=== PATIENT | female | born 1965 | race Caucasian/White ===

== ENCOUNTER 2017-03-19 14:03 | Observation (INO) | payer OTHER ==
[2017-03-19] MEDS ORDERED: NITROGLYCERIN OINT 1 INCH/GM PACKET TOPICAL STA (14:46)
[2017-03-19] MEDS ORDERED: ASPIRIN 81 MG CHEW PO STA (14:46)
--- NOTE | 2017-03-19 14:48 | ED ---
General Adult HPI - General Chief complaint: Chest Pain Stated complaint: Chest Pain Time Seen by Provider: 03/19/17 14:20 Source: patient, RN notes reviewed Mode of arrival: wheelchair Limitations: no limitations - History of Present Illness Initial comments: This is a 51-year-old female with past medical history significant for diabetes hypertension high cholesterol. Patient states she's been expressing chest pain the last couple of days per patient states the initial pain is sharper pain which lasts a few minutes and then she has a steady soreness in the middle of her chest per patient states today she was hanging some clothes when she started having some shortness of breath chest pain and broke out into a heavy sweat. Patient states she has a family history of heart disease and she came to the hospital immediately. Patient states she still expressing slight chest pressure currently. Patient denies any nausea. Patient denies abdominal pain patient denies nausea vomiting diarrhea. Patient denies any recent fever chills or cough per patient denies lightheadedness dizziness or nursing episode. - Related Data Home Medications Medication Instructions Recorded Confirmed Atorvastatin [Lipitor] 10 mg PO HS 03/19/17 03/19/17 Cholecalciferol [Vitamin D3] 5,000 unit PO DAILY 03/19/17 03/19/17 Levothyroxine Sodium [Synthroid] 150 mcg PO DAILY 03/19/17 03/19/17 Lisinopril [Prinivil] 10 mg PO DAILY 03/19/17 03/19/17 Multivitamins, Thera [Multivitamin 1 tab PO DAILY 03/19/17 03/19/17 (formulary)] Vitamin E (Dl,Tocopheryl Acet) 400 unit PO DAILY 03/19/17 03/19/17 [Vitamin E] metFORMIN HCL [Glucophage] 500 mg PO DAILY 03/19/17 03/19/17 Allergies Allergy/AdvReac Type Severity Reaction Status Date / Time amoxicillin Allergy Rash/Hives Verified 03/19/17 15:03 Review of Systems ROS Statement: Those systems with pertinent positive or pertinent negative responses have been documented in the HPI. ROS Other: All systems not noted in ROS Statement are negative. Past Medical History Past Medical History: Asthma, COPD, Diabetes Mellitus, Hypertension, Thyroid Disorder Additional Past Medical History / Comment(s): collapsed lung History of Any Multi-Drug Resistant Organisms: None Reported Past Surgical History: Appendectomy, Hysterectomy Past Psychological History: No Psychological Hx Reported Smoking Status: Former smoker Past Alcohol Use History: None Reported Past Drug Use History: None Reported General Exam - General Exam Comments Initial Comments: GENERAL: Patient is well-developed and well-nourished. Patient is nontoxic and well- hydrated and is in mild distress. ENT: Neck is soft and supple. No significant lymphadenopathy is noted. Oropharynx is clear. Moist mucous membranes. Neck has full range of motion without eliciting any pain. EYES: The sclera were anicteric and conjunctiva were pink and moist. Extraocular movements were intact and pupils were equal round and reactive to light. Eyelids were unremarkable. PULMONARY: Unlabored respirations. Good breath sounds bilaterally. No audible rales rhonchi or wheezing was noted. CARDIOVASCULAR: There is a regular rate and rhythm without any murmurs gallops or rubs. ABDOMEN: Soft and nontender with normal bowel sounds. No palpable organomegaly was noted. There is no palpable pulsatile mass. SKIN: Skin is clear with no lesions or rashes and otherwise unremarkable. NEUROLOGIC: Patient is alert and oriented x3. Cranial nerves II through XII are grossly intact. Motor and sensory are also intact. Normal speech, volume and content. Symmetrical smile. MUSCULOSKELETAL: Normal extremities with adequate strength and full range of motion. LYMPHATICS: No significant lymphadenopathy is noted PSYCHIATRIC: Normal psychiatric evaluation. Normal interpersonal interactions appears functionally intact in deals appropriately with others. No signs of depression. No signs of anxiety. Limitations: no limitations Course Vital Signs 03/19/17 03/19/17 03/19/17 14:10 15:06 16:03 Temperature 97.3 F L 98.3 F 98 F Pulse Rate 95 92 80 Respiratory 18 18 16 Rate Blood Pressure 135/79 165/90 136/64 O2 Sat by Pulse 95 97 99 Oximetry Medical Decision Making - Medical Decision Making EKG shows normal sinus rhythm at 90 bpm MO interval 140 QRS is 94 Q-T intervals 388 QTC is 474 per patient's EKG shows no ST segment elevation or depression or T wave abnormalities are noted. Chest x-ray shows no acute abnormality. Patient had significant risk factors and her symptoms were significant enough that I thought the patient was having unstable angina Cipro the patient on heparin. I spoke with Dr. James agreed to admit the patient admitted the patient and wrote admitting orders and consult cardiology I continued heparin aspirin and nitroglycerin in the hospital. - Lab Data Result diagrams: 03/19/17 15:00 03/19/17 15:00 Lab Results 03/19/17 03/19/17 03/19/17 Range/Units 15:00 15:00 15:00 WBC 11.8 H (3.8-10.6) k/uL RBC 4.70 (3.80-5.40) m/uL Hgb 13.2 (11.4-16.0) gm/dL Hct 40.4 (34.0-46.0) % MCV 86.1 (80.0-100.0) fL MCH 28.0 (25.0-35.0) pg MCHC 32.5 (31.0-37.0) g/dL RDW 14.3 (11.5-15.5) % Plt Count 301 (150-450) k/uL Neutrophils % 70 % Lymphocytes % 24 % Monocytes % 2 % Eosinophils % 1 % Basophils % 1 % Neutrophils # 8.2 H (1.3-7.7) k/uL Lymphocytes # 2.8 (1.0-4.8) k/uL Monocytes # 0.3 (0-1.0) k/uL Eosinophils # 0.1 (0-0.7) k/uL Basophils # 0.1 (0-0.2) k/uL PT (9.0-12.0) sec INR (<1.1) APTT (22.0-30.0) sec Sodium 142 (137-145) mmol/L Potassium 4.1 (3.5-5.1) mmol/L Chloride 104 (98-107) mmol/L Carbon Dioxide 29 (22-30) mmol/L Anion Gap 9 mmol/L BUN 12 (7-17) mg/dL Creatinine 0.59 (0.52-1.04) mg/dL Est GFR (MDRD) Af Amer >60 (>60 ml/min/1.73 sqM) Est GFR (MDRD) Non-Af >60 (>60 ml/min/1.73 sqM) Glucose 208 H (74-99) mg/dL Calcium 9.7 (8.4-10.2) mg/dL Magnesium 1.8 (1.6-2.3) mg/dL Total Bilirubin 0.6 (0.2-1.3) mg/dL AST 88 H (14-36) U/L ALT 78 H (9-52) U/L Alkaline Phosphatase 125 (38-126) U/L Total Creatine Kinase 47 (30-135) U/L CK-MB (CK-2) 0.4 (0.0-2.4) ng/mL CK-MB (CK-2) Rel Index 0.9 Troponin I <0.012 (0.000-0.034) ng/mL Total Protein 7.0 (6.3-8.2) g/dL Albumin 4.0 (3.5-5.0) g/dL 03/19/17 Range/Units 15:00 WBC (3.8-10.6) k/uL RBC (3.80-5.40) m/uL Hgb (11.4-16.0) gm/dL Hct (34.0-46.0) % MCV (80.0-100.0) fL MCH (25.0-35.0) pg MCHC (31.0-37.0) g/dL RDW (11.5-15.5) % Plt Count (150-450) k/uL Neutrophils % % Lymphocytes % % Monocytes % % Eosinophils % % Basophils % % Neutrophils # (1.3-7.7) k/uL Lymphocytes # (1.0-4.8) k/uL Monocytes # (0-1.0) k/uL Eosinophils # (0-0.7) k/uL Basophils # (0-0.2) k/uL PT 10.3 (9.0-12.0) sec INR 1.0 (<1.1) APTT 23.5 (22.0-30.0) sec Sodium (137-145) mmol/L Potassium (3.5-5.1) mmol/L Chloride (98-107) mmol/L Carbon Dioxide (22-30) mmol/L Anion Gap mmol/L BUN (7-17) mg/dL Creatinine (0.52-1.04) mg/dL Est GFR (MDRD) Af Amer (>60 ml/min/1.73 sqM) Est GFR (MDRD) Non-Af (>60 ml/min/1.73 sqM) Glucose (74-99) mg/dL Calcium (8.4-10.2) mg/dL Magnesium (1.6-2.3) mg/dL Total Bilirubin (0.2-1.3) mg/dL AST (14-36) U/L ALT (9-52) U/L Alkaline Phosphatase (38-126) U/L Total Creatine Kinase (30-135) U/L CK-MB (CK-2) (0.0-2.4) ng/mL CK-MB (CK-2) Rel Index Troponin I (0.000-0.034) ng/mL Total Protein (6.3-8.2) g/dL Albumin (3.5-5.0) g/dL Critical Care Time Critical Care Time: Yes Total Critical Care Time: 35 Disposition Clinical Impression: Unstable angina pectoris Disposition: ADMITTED IP TO THIS HOSP Referrals: lOiverio Stout MD [Primary Care Provider] - 1-2 days Time of Disposition: 16:25
[2017-03-19 15:27] LABS: Basophils # (A) 0.1 k/uL (0-0.2); Basophils % (A) 1 %; CH 27.8; CHCM 32.4; Eosinophils # (A) 0.1 k/uL (0-0.7); Eosinophils % (A) 1 %; HCT 40.4 % (34.0-46.0); HDW 2.61; HGB 13.2 gm/dL (11.4-16.0); Luc # (Auto) 0.24; Luc % (Auto) 2; Lymphocytes # (A) 2.8 k/uL (1.0-4.8); Lymphocytes % (A) 24 %; MCHC 32.5 g/dL (31.0-37.0); MCV 86.1 fL (80.0-100.0); Mean Platelet Volume 7.1; Monocytes # (A) 0.3 k/uL (0-1.0); Monocytes % (A) 2 %; Neutrophils # (A) 8.2 k/uL (1.3-7.7); Neutrophils % (A) 70 %; RDW 14.3 % (11.5-15.5); WBC 11.8 k/uL (3.8-10.6); WBC (Perox) 12.56
--- NOTE | 2017-03-19 15:35 | XR ---
EXAMINATION TYPE: XR chest 2V DATE OF EXAM: 03/19/2017 COMPARISON: NONE HISTORY: Shortness of breath TECHNIQUE: Frontal and lateral views of the chest are obtained. FINDINGS: Scattered senescent parenchymal changes noted. Hyperinflation compatible with COPD. No evidence for infiltrate. No evidence for atelectasis. Heart size is stable. Mediastinal structures are stable and grossly unremarkable. No evidence for hilar prominence. Degenerative changes dorsal spine. IMPRESSION: 1. No evidence for acute pulmonary disease.
[2017-03-19 15:38] LABS: Partial Thromboplastin Time 23.5 sec (22.0-30.0); Prothrombin Time 10.3 sec (9.0-12.0)
[2017-03-19 15:42] LABS: ALT 78 U/L (9-52); AST 88 U/L (14-36); Alkaline Phosphatase 125 U/L (38-126); Anion Gap 9 mmol/L; Blood Urea Nitrogen 12 mg/dL (7-17); Calcium 9.7 mg/dL (8.4-10.2); Carbon Dioxide 29 mmol/L (22-30); Chloride 104 mmol/L (98-107); Glucose 208 mg/dL (74-99); Magnesium 1.8 mg/dL (1.6-2.3); Non-African American GFR(MDRD) >60 (>60 ml/min/1.73 sqM); Potassium 4.1 mmol/L (3.5-5.1); Sodium 142 mmol/L (137-145); Total Bilirubin 0.6 mg/dL (0.2-1.3)
[2017-03-19 15:53] LABS: Creatine Kinase 47 U/L (30-135)
[2017-03-19 16:06] LABS: Creatine Kinase MB 0.4 ng/mL (0.0-2.4); Troponin I <0.012 ng/mL (0.000-0.034)
[2017-03-19] MEDS ORDERED: HEPARIN SODIUM,PORCINE 5,000 UNIT/ML 1 ML VIAL IV ONE (16:23)
[2017-03-19] MEDS ORDERED: NITROGLYCERIN SL TABS 0.4 MG TAB SUBLINGUAL PRN (16:27)
[2017-03-19] MEDS ORDERED: HEPARIN SODIUM,PORCINE/D5W PMX 25,000 UNIT in DEXTROSE/WATER 1 500ML.BAG IV SCH (16:30)
[2017-03-19 17:56] LABS: Glucose,Whole Blood 192 mg/dL (75-99)
[2017-03-19] MEDS ORDERED: ACETAMINOPHEN TAB 325 MG TAB PO PRN (18:02)
[2017-03-19] MEDS: INSULIN LISPRO (humaLOG) 300 UNIT/3 ML VIAL SQ SCH ×2 (18:15→20:48)
[2017-03-19] MEDS: ATORVASTATIN 10 MG TAB PO SCH (20:25)
[2017-03-19 20:56] LABS: Glucose,Whole Blood 230 mg/dL (75-99)
[2017-03-19 22:26] LABS: Creatine Kinase 33 U/L (30-135)
[2017-03-19 22:40] LABS: Creatine Kinase MB 0.4 ng/mL (0.0-2.4); Troponin I <0.012 ng/mL (0.000-0.034)
[2017-03-19] MEDS: HEPARIN SODIUM,PORCINE 5,000 UNIT/ML 1 ML VIAL IV PRN (22:56)
[2017-03-19] MEDS: NITROGLYCERIN OINT 1 INCH/GM PACKET TOPICAL SCH (23:08)
[2017-03-20 04:51] LABS: Cholesterol 178 mg/dL (<200); HDL Cholesterol 29 mg/dL (40-60); Triglycerides 368 mg/dL (<150)
[2017-03-20] MEDS: NITROGLYCERIN OINT 1 INCH/GM PACKET TOPICAL SCH ×3 (04:56→17:50)
[2017-03-20 04:57] LABS: Creatine Kinase 30 U/L (30-135)
[2017-03-20 05:10] LABS: Creatine Kinase MB 0.4 ng/mL (0.0-2.4); Troponin I <0.012 ng/mL (0.000-0.034)
[2017-03-20] MEDS: HEPARIN SODIUM,PORCINE 5,000 UNIT/ML 1 ML VIAL IV PRN (05:14)
[2017-03-20] MEDS: LEVOTHYROXINE 75 MCG TAB PO SCH (06:13)
[2017-03-20 06:53] LABS: Glucose,Whole Blood 231 mg/dL (75-99)
[2017-03-20] MEDS ORDERED: metFORMIN 500 MG TAB PO SCH (07:30)
--- NOTE | 2017-03-20 07:50 | P.PN ---
Progress Note - Text The patient is a 51-year-old female who presented yesterday to the emergency room with chest pain. Please refer to history and physical that was dictated yesterday. Patient states overall the pain has eased up but this morning she still having one area of discomfort in the right upper chest costochondral area. She denies any shortness of breath or nausea and vomiting at this time. Patient does have risk factors with the underlying obesity, diabetes, hypertension and hyperlipidemia. She also has a positive family history. Vital signs reveal temperature 97.7 with a pulse of 71 and respirations 16. Blood pressure is 128/79 and she is 95% saturated on room air. Head and neck exam unremarkable. Lung and heart exam is clear. No rubs heard. No murmurs. Some mild discomfort with pressure in the right upper chest. Abdomen soft and nontender. No unusual edema. She is alert and oriented without focal weakness. Laboratory results: Troponins have been less than 0.012. CKs have remained normal. Cholesterol values revealed a total cholesterol 178 and an LDL close to 79. Triglycerides are elevated at 368 and blood sugars also running in the 200 range. Impressions and plan: This is a 51-year-old female with multiple risk factors presented with chest pain. She is presently on heparin. Await further recommendations from cardiology on any further testing/ evaluation. Discussed with patient at bedside.
--- NOTE | 2017-03-20 07:55 | HP ---
DATE OF ADMISSION: Mrs. Rust is a 51-year-old female who chief complaint in the emergency room was chest pain. HISTORY OF PRESENT ILLNESS: Apparently has had some chest discomfort on-and-off for the past 2 to 3 days, sharp in nature to some extent and then leaving more of just a generalized ache, not particularly related to coughing or movement. No specific injury. She did apparently have a recent URI for which she was on the antibiotics and has had some cough with sinus drainage. No previous history of coronary disease. Other past medical history is positive for diabetes, hypertension, and hypothyroidism. There is a history of previous smoking. Previous surgical history includes an appendectomy and hysterectomy. Home medications include: Lipitor for cholesterol 10 mg at bedtime, vitamin D3 5000 units daily, levothyroxine 150 mcg, lisinopril 10 mg, Theragran multiple vitamin daily, vitamin E 400 units and metformin 500 mg daily. Apparently, she is ALLERGIC TO PENICILLIN with hives. REVIEW OF SYSTEMS: As mentioned in the history of present illness. No fever, chills, no visual disturbances, no unusual phlegm production or pleurisy. No nausea, vomiting, no urinary or bowel symptomatology or leg edema. FAMILY HISTORY: Apparently her mother had heart disease at the age of 60 and has had bypass surgery recently and there is other stroke symptomatology on her mother's side. SOCIAL HISTORY: She is a former smoker, quit 2 to 3 years ago. No history of any excessive alcohol intake. On physical examination, she is pleasant female in no acute distress. VITAL SIGNS: Temperature 97.5, pulse 85, respirations 18, blood pressure 135/79 and she is 94% saturated on room air. HEENT: Unremarkable. NECK: Supple without adenopathy or bruits or thyromegaly. Breasts and pelvic exam deferred. Chest: Mild anterior chest wall tenderness right costochondrol. Lungs were clear to auscultation. HEART: Tones were regular without murmurs. ABDOMEN: Obese but soft and nontender. EXTREMITIES: No edema. NEUROLOGICAL: She is alert and oriented. Cranial nerves intact. No focal weakness noted. Laboratory testing revealed a white count 11.8, hemoglobin 13.2 and a platelet count of 301. INR is 1.0. Basic metabolic panel was unremarkable, although blood sugar was 208 on presentation. She also had some mild elevation of the AST and ALT of 88 and 78, respectively, with a normal bilirubin. Normal troponin less than 0.012 and albumin normal at 4. EKG revealed a regular sinus rhythm without ischemic changes. OVERALL IMPRESSION: This is 51-year-old female who does have risk factors that includes previous smoking, diabetes, obesity. Family history presents with chest pain, somewhat atypical associated with some symptoms and consistency of costochondritis, although at this point plans are to place. Patient under observation and ask Cardiology to see in the morning. Repeat troponin levels keep n.p.o. in the morning for further testing as discussed with the nursing staff and patient at bedside. I am covering for Dr. Stout who is out of town. [facility]
[2017-03-20] MEDS: INSULIN LISPRO (humaLOG) 300 UNIT/3 ML VIAL SQ SCH ×4 (08:21→20:09)
--- NOTE | 2017-03-20 08:37 | CONS ---
DATE OF CONSULTATION: CHIEF COMPLAINT: Chest pain. Angelina is a 51-year-old lady with hypertension, diabetes, and dyslipidemia as coronary risk factors who presented to hospital with precordial chest pain. She describes it as a sharp, precordial pain without definite radiation to neck, arm or back, unassociated with diaphoresis and unrelated to exertion. It was mild intensity, came on yesterday. She also has generalized aches and pains and sometimes the discomfort was related to coughing. At the time of my evaluation, she is pain free, hemodynamically stable and in no apparent distress. Her LDL cholesterol is 75. Three sets of cardiac enzymes have been negative. Hemoglobin is normal at 13.2. EKG does not reveal ischemic changes. Given the atypical nature of her symptoms, I am going to schedule her for a stress test. If this is negative, she will be discharged home. If this is abnormal, we will pursue it further. Past medical history is significant for diabetes, hypertension, dyslipidemia. Current medications include Glucophage, vitamin D, Synthroid, Prinivil and Lipitor. Allergic to AMOXICILLIN. FAMILY HISTORY: Negative for premature coronary artery disease. Social history is negative for current smoking, EtOH abuse, or drug abuse. REVIEW OF SYSTEMS: HEENT is unremarkable. CARDIAC: As described above. RESPIRATORY: Negative. GI: Negative. GENITOURINARY: Negative. SKIN: Negative. MUSCULOSKELETAL: Significant for arthritis. PSYCHOSOCIAL: Negative. ENDOCRINE: Negative. CONSTITUTIONAL: Negative. ONCOLOGICAL: Negative. The rest of the system review is not relevant. On exam, comfortable at rest. Vital signs are stable. There is no jugular venous distention. Carotid upstroke is normal. There is no bruit. Chest is clear to auscultation and percussion. Heart exam reveals first and second heart sounds. No gallop. No murmur, no rub. Abdomen is soft, nontender. Exam of extremities did not reveal edema. Peripheral pulses are felt. AUTO TESTER exam did not reveal focal neurological deficits. ASSESSMENT: 1. Chest pain. 2. Hypertension. 3. Dyslipidemia. PLAN: Patient's chest discomfort seems atypical. I am going to schedule her for a stress echo. If this is negative, she will be discharged home. If this is abnormal, we will perform cardiac catheterization on her.
--- NOTE | 2017-03-20 11:02 | ECHOF ---
Referral Reason:chest pain MEASUREMENTS -------- HEIGHT: 154.9 cm WEIGHT: 98.4 kg BP: IVSd: 1.3 cm (0.6 - 1.1) LVIDd: 3.3 cm (3.9 - 5.3) LVPWd: 1.5 cm (0.6 - 1.1) IVSs: 1.7 cm LVIDs: 2.1 cm LVPWs: 1.5 cm Ao Diam: 3.3 cm (2.0 - 3.7) AV Cusp: 2.3 cm (1.5 - 2.6) LA Diam: 1.9 cm (2.7 - 3.8) MV EXCURSION: 10.759 mm (> 18.000) MV EF SLOPE: 52 mm/s (70 - 150) EPSS: 1.7 cm MV E Luke: 0.65 m/s MV DecT: 205 ms MV A Luke: 0.76 m/s MV E/A Ratio: 0.85 RAP: 5.00 mmHg RVSP: 10.49 mmHg FINDINGS -------- Sinus rhythm. This was a technically difficult study with suboptimal views. There is mild concentric left ventricular hypertrophy. Overall left ventricular systolic function is normal with, an EF between 55 - 60 %. The right ventricle is normal in size and function. The left atrium is normal in size. The right atrium is normal in size. 1.5mg of Definity was utilized for enhancement of images The aortic valve was not well visualized. There is trace mitral regurgitation. Trace tricuspid regurgitation present. The right ventricular systolic pressure, as measured by Doppler, is 10.49mmHg. Pulmonic valve appears structurally normal. The aortic root size is normal. The pericardium is normal. CONCLUSIONS -------- 1. Sinus rhythm. 2. There is trace mitral regurgitation. 3. Trace tricuspid regurgitation present. 4. The right ventricular systolic pressure, as measured by Doppler, is 10.49mmHg. 5. Pulmonic valve appears structurally normal. 6. The aortic root size is normal. 7. The pericardium is normal. 8. This was a technically difficult study with suboptimal views. 9. There is mild concentric left ventricular hypertrophy. 10. Overall left ventricular systolic function is normal with, an EF between 55 - 60 %. 11. The right ventricle is normal in size and function. 12. The left atrium is normal in size. 13. The right atrium is normal in size. 14. 1.5mg of Definity was utilized for enhancement of images 15. The aortic valve was not well visualized. SERVICE DEPARTMENT MANAGER: Conchita Pelletier RDCS
[2017-03-20] MEDS: VITAMIN E (DL,TOCOPHERYL ACET) 400 UNIT CAP PO SCH (11:22)
[2017-03-20] MEDS: ASPIRIN 325 MG TAB PO SCH (11:22)
[2017-03-20] MEDS: MULTIVITAMINS, THERA 1 EACH TAB PO SCH (11:22)
[2017-03-20] MEDS: LISINOPRIL 10 MG TAB PO SCH (11:22)
[2017-03-20] MEDS: CHOLECALCIFEROL 1,000 UNIT TAB PO SCH (11:22)
[2017-03-20 11:53] LABS: Glucose,Whole Blood 157 mg/dL (75-99)
[2017-03-20 16:56] LABS: Glucose,Whole Blood 173 mg/dL (75-99)
[2017-03-20 19:37] VITALS: RESP 18
[2017-03-20 20:06] LABS: Glucose,Whole Blood 241 mg/dL (75-99)
[2017-03-20] MEDS: ATORVASTATIN 10 MG TAB PO SCH (20:09)
[2017-03-21] MEDS: NITROGLYCERIN OINT 1 INCH/GM PACKET TOPICAL SCH (05:09)
[2017-03-21] MEDS: LEVOTHYROXINE 75 MCG TAB PO SCH (05:55)
[2017-03-21 06:58] LABS: Glucose,Whole Blood 207 mg/dL (75-99)
[2017-03-21 08:11] VITALS: BP 138/88; PULSE 79; TEMP 98.7
[2017-03-21] MEDS: VITAMIN E (DL,TOCOPHERYL ACET) 400 UNIT CAP PO SCH (08:45)
[2017-03-21] MEDS: LISINOPRIL 10 MG TAB PO SCH (08:45)
[2017-03-21] MEDS: ASPIRIN 325 MG TAB PO SCH (08:45)
[2017-03-21] MEDS: INSULIN LISPRO (humaLOG) 300 UNIT/3 ML VIAL SQ SCH (08:46)
[2017-03-21] MEDS: CHOLECALCIFEROL 1,000 UNIT TAB PO SCH (08:46)
[2017-03-21] MEDS: MULTIVITAMINS, THERA 1 EACH TAB PO SCH (08:46)
--- NOTE | 2017-03-21 09:09 | P.DS ---
Providers Date of admission: 03/19/17 16:41 Attending physician: Sonido James Consults: 03/19/17 16:27 Consult Physician Urgent Consulting Provider: Cardiology Russel Consult Reason/Comments: Unstable angina Do you want consulting provider notified?: Yes Primary care physician: Oliverio Stout This is Dr. Sonido James dictating a discharge summary for the patient Angelina Rust. She is a patient of Dr. Stout. Patient presented to the emergency room with complaints of chest pain. Please refer to history and physical on presentation. She had recently recovered from an upper respiratory infection. Initial workup in the emergency room showed an EKG without ischemic changes and in sinus rhythm. Laboratory values showed a white count of 11.8 and a hemoglobin 13.2 and a platelet count of 301. Her basic metabolic panel was unremarkable but she did have some mild elevation of her liver function tests with an AST of 88 and an ALT of 78. Her troponins 3 were less than 0.012. Cholesterol values revealed a cholesterol 178 with triglycerides of 368 and LDL cholesterol of 75. HDL cholesterol 29. Her chest x-ray showed no evidence of any acute pulmonary disease. Patient was seen by cardiology Dr. Ragini Evangelista. Patient had a echocardiography procedure performed which showed sinus rhythm. Trace mitral regurgitation. Aortic root size appeared normal. Left atrium was normal and ejection fraction of 55-60%. It was somewhat technically difficult study. Patient underwent cardiac stress testing which was normal per Dr. Evangelista . Impressions and plans: 1. Chest pain. Costochondritis. Other diagnoses 2 obesity 3 hypertension 4 diabetes 5 hypothyroidism 6 patient does have risk factors with previous smoking history and positive family history. 7. Elevated liver function tests of unknown etiology at this time. Patient will follow-up with Dr. Stout and [facility]. Continue previous home medications that will include Lipitor 10 mg at bedtime Vitamin D3 5000 units daily Levothyroxine 150 g daily Lisinopril 10 mg daily Theragran multiple vitamin daily Vitamin E 400 units daily And metformin 500 mg daily. Low-cholesterol diet and no heavy lifting over the next 24-48 hours. Tylenol or [id number] anti-inflammatory medication for pain as needed. Patient to have repeat liver function testing as outpatient and possible workup if liver function tests continue to be elevated. Plan - Discharge Summary New Discharge Prescriptions: No Action Lisinopril [Prinivil] 10 mg PO DAILY Atorvastatin [Lipitor] 10 mg PO HS Multivitamins, Thera [Multivitamin (formulary)] 1 tab PO DAILY metFORMIN HCL [Glucophage] 500 mg PO DAILY Vitamin E (Dl,Tocopheryl Acet) [Vitamin E] 400 unit PO DAILY Levothyroxine Sodium [Synthroid] 150 mcg PO DAILY Cholecalciferol [Vitamin D3] 5,000 unit PO DAILY Discharge Medication List Atorvastatin [Lipitor] 10 mg PO HS 03/19/17 [History] Cholecalciferol [Vitamin D3] 5,000 unit PO DAILY 03/19/17 [History] Levothyroxine Sodium [Synthroid] 150 mcg PO DAILY 03/19/17 [History] Lisinopril [Prinivil] 10 mg PO DAILY 03/19/17 [History] Multivitamins, Thera [Multivitamin (formulary)] 1 tab PO DAILY 03/19/17 [History ] Vitamin E (Dl,Tocopheryl Acet) [Vitamin E] 400 unit PO DAILY 03/19/17 [History] metFORMIN HCL [Glucophage] 500 mg PO DAILY 03/19/17 [History] Follow up Appointment(s)/Referral(s): Hugh Evangelista MD [STAFF PHYSICIAN] - 6 Weeks Oliverio Stout MD [Primary Care Provider] - 1 Week Patient Instructions/Handouts: Angina (GEN)
--- NOTE | 2017-03-21 09:14 | PN ---
Ivania is a 51-year-old lady who was admitted to hospital with chest pain, that I evaluated yesterday. She ruled out for myocardial infarction. EKG did not reveal ischemic changes. An echocardiogram showed normal LV systolic function. She underwent a stress echo that was negative for ischemia. I reviewed the results with the patient and we can discharge her home and she will follow up with me in 4 weeks time.
--- NOTE | 2017-03-23 11:18 | ECHOS ---
DATE OF SERVICE: 03/20/2017 AGE: 51Y SEX: F HT: 60 WT: 217 lbs. Protocol Jasmeet: X Others: Stress Echo Stage: 2 Dur. of Exercise: 3:30 *Heart Rate Blood Pressure *Rest: 88 Rest: 120/84 * *Max. Achieved: 142 Maximum BP: 187/90 85% PMHR: 145 100% PMHR: 170 *METS: 5.0 INDICATIONS: Chest pain. MEDICATIONS: - STRESS DATA: Pretesting physical examination showed heart rate of 88, pressure is 120/84 mmHg. Baseline EKG showed sinus mechanism. The patient exercised on the treadmill according to Jasmeet protocol for a total of 3 minutes and 30 seconds and achieved 5.0 METs. Max heart rate was 142, which is about 83% of maximum predicted heart rate. Maximum blood pressure was 187/90 mmHg. Clinically, the patient did not have any symptoms of chest pain, but she developed shortness of breath in response to exercise. The EKG did not show any significant ST or T-wave abnormalities consistent with ischemia or meeting the criteria for ischemia. ECHOCARDIOGRAM IMAGES: On echocardiogram images and parasternal long axis view, parasternal short axis view, apical 4 chambers and apical 2 chamber view were obtained as the baseline images, at the peak of the heart rate, as well as on recovery. The echocardiogram images showed good augmentation in the left ventricular systolic function without any evidence of wall motion abnormalities consistent with ischemia. CONCLUSION: 1. Poor exercise capacity. 2. Normal EKG in response to exercise. 3. Normal echocardiogram in response to exercise.
== END 2017-03-21 11:55 | disposition home or self-care (01) ==
LOC: EC 14:03 → 3OBS 16:41
PROVIDERS: ADMIT Internal Medicine; ATTEND Internal Medicine
DX: I20.0 Unstable angina (principal); I10 Essential (primary) hypertension; E11.9 Type 2 diabetes mellitus without complications; J44.9 Chronic obstructive pulmonary disease, unspecified; J45.909 Unspecified asthma, uncomplicated; E03.9 Hypothyroidism, unspecified; E66.9 Obesity, unspecified; E78.5 Hyperlipidemia, unspecified; Z82.49 Family history of ischemic heart disease and other diseases of the circulatory system; Z79.899 Other long term (current) drug therapy; Z79.84 Long term (current) use of oral hypoglycemic drugs; Z88.0 Allergy status to penicillin; Z87.891 Personal history of nicotine dependence; Z82.3 Family history of stroke; Z68.41 Body mass index [BMI] 40.0-44.9, adult
CPT/HCPCS: 36415; 93005; 93017; 80061; 80053; 82550 ×2; 82553 ×2; 83735; 84484 ×2; 85025; 85610; 85730 ×2; 71020; G0378 ×3; C8928; C8929; J1644 ×3; Q9957; 93306; 93350; 96365; 96366; 96376; 99291

== ENCOUNTER → 2018-02-02 | Outpatient (CLI) | payer OTHER ==
--- NOTE | 2018-02-03 14:27 | MM ---
Reason for exam: screening (asymptomatic). Last mammogram was performed 1 year and 1 month ago. History: Patient is postmenopausal. Physical Findings: A clinical breast exam by your physician is recommended on an annual basis and results should be correlated with mammographic findings. MG Screening Mammo w CAD Bilateral CC and MLO view(s) were taken. Prior study comparison: January 13, 2017, mammogram, performed at [facility]. There are scattered fibroglandular densities. No significant changes when compared with prior studies. ASSESSMENT: Negative, BI-RAD 1 RECOMMENDATION: Routine screening mammogram of both breasts in 1 year.
== END | disposition home or self-care (01) ==
LOC: RADMAMWWP 09:20
PROVIDERS: ATTEND Internal Medicine
DX: Z12.31 Encounter for screening mammogram for malignant neoplasm of breast (principal)
CPT/HCPCS: 77067

== ENCOUNTER 2019-11-02 18:18 | Emergency (ER) | payer OTHER ==
[2019-11-02 18:24] VITALS: TEMP 97.9
[2019-11-02 18:37] LABS: Glucose,Whole Blood 362 mg/dL (75-99)
[2019-11-02] MEDS ORDERED: INSULIN ASPART (NovoLOG) 100 UNIT/ML VIAL SQ ONE (18:40)
[2019-11-02] MEDS ORDERED: SODIUM CHLORIDE 0.9% 1,000 ML IV STA (18:40)
--- NOTE | 2019-11-02 18:40 | ED ---
General Adult HPI - General Chief complaint: Recheck/Abnormal Lab/Rx Stated complaint: High blood sugar Time Seen by Provider: 11/02/19 18:27 Source: patient, RN notes reviewed, old records reviewed Mode of arrival: ambulatory Limitations: no limitations - History of Present Illness Initial comments: 54-year-old female patient past medical history of type 2 diabetes, appendectomy, hysterectomy, asthma, COPD hypertension presents to ED for chief complaint of elevated blood sugar. Patient was that she has been type II diabetic for approximately 12 years. Is currently on metformin 500 mg 3 times a day. Patient reports that the last 3 days her sugars have been higher than normal. Reports then 304 100s. Reports that she has been urinating a lot. D enies any other symptoms however. Denies any cough congestion fevers chills pain anywhere. Systemic: Pt denies fatigue, fever/chills, rash. Pt denies weakness, night sweats, weight loss. Neuro: Pt denies headache, visual disturbances, syncope or pre-syncope. HEENT: Pt denies ocular discharge or irritation, otalgia, rhinorrhea, pharyngitis or notable lymphadenopathy. Cardiopulmonary: Pt denies chest pain, SOB, heart palpitations, dyspnea on exertion. Abdominal/GI: Pt denies abdominal pain, n/v/d. : Pt denies dysuria, burning w/ urination, frequency/urgency. Denies new onset urinary or bowel incontinence. MSK: Pt denies myalgia, loss of strength or function in extremities. Neuro: Pt denies new onset weakness, paresthesias. - Related Data Home Medications Medication Instructions Recorded Confirmed Atorvastatin [Lipitor] 10 mg PO HS 03/19/17 11/24/18 Cholecalciferol [Vitamin D3] 5,000 unit PO DAILY 03/19/17 11/24/18 Levothyroxine Sodium [Synthroid] 150 mcg PO QAM 03/19/17 11/24/18 Lisinopril [Prinivil] 20 mg PO QAM 03/19/17 11/24/18 Multivitamins, Thera [Multivitamin 1 tab PO DAILY 03/19/17 11/24/18 (formulary)] Vitamin E (Dl,Tocopheryl Acet) 400 unit PO DAILY 03/19/17 11/24/18 [Vitamin E] metFORMIN HCL [Glucophage] 500 mg PO TID 03/19/17 11/24/18 Allergies Allergy/AdvReac Type Severity Reaction Status Date / Time amoxicillin Allergy Rash/Hives Verified 11/02/19 18:24 Review of Systems ROS Statement: Those systems with pertinent positive or pertinent negative responses have been documented in the HPI. ROS Other: All systems not noted in ROS Statement are negative. Past Medical History Past Medical History: Asthma, Chest Pain / Angina, COPD, Diabetes Mellitus, Hyperlipidemia, Hypertension, Osteoarthritis (OA), Thyroid Disorder Additional Past Medical History / Comment(s): "TOLD 3-4 YEARS AGO I HAD A PARTIAL COLLAPSED LUNG LT SIDE_NO CHEST TUBE", BRONCHITIS,steroids October 2018 History of Any Multi-Drug Resistant Organisms: None Reported Past Surgical History: Appendectomy, Hysterectomy, Tubal Ligation Past Anesthesia/Blood Transfusion Reactions: Motion Sickness Additional Past Anesthesia/Blood Transfusion Reaction / Comment(s): no hx blood transfusion Past Psychological History: No Psychological Hx Reported Smoking Status: Former smoker Past Alcohol Use History: None Reported Past Drug Use History: None Reported - Past Family History Mother Family Medical History: Cancer, Coronary Artery Disease (CAD), Diabetes Mellitus, Deep Vein Thrombosis (DVT), GERD/Reflux, Hypertension, Myocardial Infarction ([place]), Thyroid Disorder Additional Family Medical History / Comment(s): UTERINE CANCER, CARDIAC STENTS Father Family Medical History: No Reported History Additional Family Medical History / Comment(s): SMOKES BUT PT STATED HE IS HEALTHY AT AGE 72 General Exam - General Exam Comments Initial Comments: Constitutional: NAD, AOX3, Pt has pleasant affect. HEENT: NC/AT, trachea midline, neck supple, no lymphadenopathy. Posterior pharynx non erythematous, without exudates. External ears appear normal, without discharge. Mucous membranes moist. Eyes PERRLA, EOM intact. There is no scleral icterus. No pallor noted. Cardiopulmonary: RRR, no murmurs, rubs or gallops, no JVD noted. Lungs CTAB in anterior and posterior cote. No peripheral edema. Abdominal exam: Abdomen soft and non-distended. Abdomen non-tender to palpation in all 4 quadrants. Bowel sounds active in LLQ. No hepatosplenomegaly. No ecchymosis Neuro: CN II-XII grossly intact. No nuchal rigidity. No raccon eyes, no osorio sign, no hemotympanum. No cervical spinal tenderness. MSK: No posterior calf tenderness bilaterally, homans sign negative bilaterally. Posterior tibialis and radial pulse +2 bilaterally. Sensation intact in upper and lower extremities. Full active ROM in upper and lower extremities, 5/5 stregnth. Limitations: no limitations Course Vital Signs 11/02/19 18:22 Temperature 97.9 F Pulse Rate 70 Respiratory 20 Rate Blood Pressure 133/77 O2 Sat by Pulse 98 Oximetry Medical Decision Making - Medical Decision Making 54-year-old female patient past medical history of type 2 diabetes, appendectomy, hysterectomy, asthma, COPD hypertension presents to ED for chief complaint of elevated blood sugar. Patient was that she has been type II diabetic for approximately 12 years. Is currently on metformin 500 mg 3 times a day. Patient reports that the last 3 days her sugars have been higher than normal. Reports then 304 100s. Reports that she has been urinating a lot. Denies any other symptoms however. Denies any cough congestion fevers chills pain anywhere. Patient vital signs stable, afebrile. Physical exam did not display acute pathology. Laboratory investigations revealed a leukocytosis, mildly elevated liver function tests, anion gap 7, UA displayed +4 glucose, 5 squamous cells, 5 white blood cells, small blood. Acetone is negative. Patient was administered 6 units of NovoLog subcu, 1 L normal saline. Patient dis charged will be advised to follow-up with primary care provider tomorrow. Return to ER if condition worsens. Case discussed with Dr. Perez. - Lab Data Result diagrams: 11/02/19 18:53 11/02/19 18:53 Lab Results 11/02/19 11/02/19 11/02/19 Range/Units 18:35 18:53 18:53 WBC 11.0 H (3.8-10.6) k/uL RBC 4.90 (3.80-5.40) m/uL Hgb 14.1 (11.4-16.0) gm/dL Hct 41.8 (34.0-46.0) % MCV 85.3 (80.0-100.0) fL MCH 28.8 (25.0-35.0) pg MCHC 33.7 (31.0-37.0) g/dL RDW 14.1 (11.5-15.5) % Plt Count 322 (150-450) k/uL Neutrophils % 60 % Lymphocytes % 33 % Monocytes % 3 % Eosinophils % 2 % Basophils % 1 % Neutrophils # 6.5 (1.3-7.7) k/uL Lymphocytes # 3.6 (1.0-4.8) k/uL Monocytes # 0.4 (0-1.0) k/uL Eosinophils # 0.2 (0-0.7) k/uL Basophils # 0.1 (0-0.2) k/uL Sodium 138 (137-145) mmol/L Potassium 4.5 (3.5-5.1) mmol/L Chloride 103 (98-107) mmol/L Carbon Dioxide 28 (22-30) mmol/L Anion Gap 7 mmol/L BUN 13 (7-17) mg/dL Creatinine 0.52 (0.52-1.04) mg/dL Est GFR (CKD-EPI)AfAm >90 (>60 ml/min/1.73 sqM) Est GFR (CKD-EPI)NonAf >90 (>60 ml/min/1.73 sqM) Glucose 332 H (74-99) mg/dL POC Glucose (mg/dL) 362 H (75-99) mg/dL POC Glu [facility] ID Paige Giron Calcium 9.1 (8.4-10.2) mg/dL Total Bilirubin 0.4 (0.2-1.3) mg/dL AST 50 H (14-36) U/L ALT 41 H (4-34) U/L Alkaline Phosphatase 121 (38-126) U/L Total Protein 6.5 (6.3-8.2) g/dL Albumin 3.7 (3.5-5.0) g/dL Urine Color Urine Appearance (Clear) Urine pH (5.0-8.0) Ur Specific [place] (1.001-1.035) Urine Protein (Negative) Urine Glucose (UA) (Negative) Urine Ketones (Negative) Urine Blood (Negative) Urine Nitrite (Negative) Urine Bilirubin (Negative) Urine Urobilinogen (<2.0) mg/dL Ur Leukocyte Esterase (Negative) Urine RBC (0-5) /hpf Urine WBC (0-5) /hpf Ur Squamous Epith Cells (0-4) /hpf Urine Bacteria (None) /hpf Urine Mucus (None) /hpf Acetone, Qual Negative (Negative) 01/15/20 01/15/20 Range/Units 19:30 20:20 WBC (3.8-10.6) k/uL RBC (3.80-5.40) m/uL Hgb (11.4-16.0) gm/dL Hct (34.0-46.0) % MCV (80.0-100.0) fL MCH (25.0-35.0) pg MCHC (31.0-37.0) g/dL RDW (11.5-15.5) % Plt Count (150-450) k/uL Neutrophils % % Lymphocytes % % Monocytes % % Eosinophils % % Basophils % % Neutrophils # (1.3-7.7) k/uL Lymphocytes # (1.0-4.8) k/uL Monocytes # (0-1.0) k/uL Eosinophils # (0-0.7) k/uL Basophils # (0-0.2) k/uL Sodium (137-145) mmol/L Potassium (3.5-5.1) mmol/L Chloride (98-107) mmol/L Carbon Dioxide (22-30) mmol/L Anion Gap mmol/L BUN (7-17) mg/dL Creatinine (0.52-1.04) mg/dL Est GFR (CKD-EPI)AfAm (>60 ml/min/1.73 sqM) Est GFR (CKD-EPI)NonAf (>60 ml/min/1.73 sqM) Glucose (74-99) mg/dL POC Glucose (mg/dL) 227 H (75-99) mg/dL POC Glu [facility] ID Afshan Arvizu Calcium (8.4-10.2) mg/dL Total Bilirubin (0.2-1.3) mg/dL AST (14-36) U/L ALT (4-34) U/L Alkaline Phosphatase (38-126) U/L Total Protein (6.3-8.2) g/dL Albumin (3.5-5.0) g/dL Urine Color Yellow Urine Appearance Clear (Clear) Urine pH 5.5 (5.0-8.0) Ur Specific [place] 1.028 (1.001-1.035) Urine Protein Negative (Negative) Urine Glucose (UA) 4+ H (Negative) Urine Ketones Negative (Negative) Urine Blood Negative (Negative) Urine Nitrite Negative (Negative) Urine Bilirubin Negative (Negative) Urine Urobilinogen <2.0 (<2.0) mg/dL Ur Leukocyte Esterase Small H (Negative) Urine RBC 1 (0-5) /hpf Urine WBC 5 (0-5) /hpf Ur Squamous Epith Cells 5 H (0-4) /hpf Urine Bacteria Rare H (None) /hpf Urine Mucus Rare H (None) /hpf Acetone, Qual (Negative) Disposition Clinical Impression: Hyperglycemia due to type 2 diabetes mellitus Disposition: HOME SELF-CARE Condition: Stable Instructions (If sedation given, give patient instructions): Diabetes and Exercise (ED) Additional Instructions: Follow-up with primary care provider tomorrow for adjustment of diabetes medications. Return to ER if condition worsens in any way. Is patient prescribed a controlled substance at d/c from ED?: No Referrals: Panfilo Neville MD [Primary Care Provider] - 1-2 days
[2019-11-02 19:07] LABS: Basophils # (A) 0.1 k/uL (0-0.2); Basophils % (A) 1 %; Eosinophils # (A) 0.2 k/uL (0-0.7); Eosinophils % (A) 2 %; HCT 41.8 % (34.0-46.0); HGB 14.1 gm/dL (11.4-16.0); Lymphocytes # (A) 3.6 k/uL (1.0-4.8); Lymphocytes % (A) 33 %; MCH 28.8 pg (25.0-35.0); MCHC 33.7 g/dL (31.0-37.0); MCV 85.3 fL (80.0-100.0); Monocytes # (A) 0.4 k/uL (0-1.0); Monocytes % (A) 3 %; Neutrophils # (A) 6.5 k/uL (1.3-7.7); Neutrophils % (A) 60 %; Platelet Count 322 k/uL (150-450); RDW 14.1 % (11.5-15.5)
[2019-11-02 19:17] LABS: ALT 41 U/L (4-34); AST 50 U/L (14-36); African American GFR (CKD) >90 (>60 ml/min/1.73 sqM); Albumin 3.7 g/dL (3.5-5.0); Alkaline Phosphatase 121 U/L (38-126); Anion Gap 7 mmol/L; Blood Urea Nitrogen 13 mg/dL (7-17); Calcium 9.1 mg/dL (8.4-10.2); Carbon Dioxide 28 mmol/L (22-30); Chloride 103 mmol/L (98-107); Glucose 332 mg/dL (74-99); Non-African American GFR(CKD) >90 (>60 ml/min/1.73 sqM); Potassium 4.5 mmol/L (3.5-5.1); Sodium 138 mmol/L (137-145); Total Bilirubin 0.4 mg/dL (0.2-1.3); Total Protein 6.5 g/dL (6.3-8.2)
[2019-11-02 20:08] LABS: Appearance,Urine Clear (Clear); Bacteria,Urine Rare /hpf; Bilirubin,Urine Negative (Negative); Blood,Urine Negative (Negative); Color,Urine Yellow; Glucose,Urine (UA) 4+ (Negative); Ketones,Urine Negative (Negative); Leukocyte Esterase,Urine Small (Negative); Mucus,Urine Rare /hpf; Nitrite,Urine Negative (Negative); PH, Urine 5.5 (5.0-8.0); Protein,Urine Negative (Negative); RBC,Urine 1 /hpf (0-5); Specific Gravity,Urine 1.028 (1.001-1.035); Squamous Epithelial Cell,Urine 5 /hpf (0-4); Urobilinogen,Urine <2.0 mg/dL (<2.0); WBC,Urine 5 /hpf (0-5)
[2019-11-02 20:23] LABS: Glucose,Whole Blood 227 mg/dL (75-99)
[2019-11-02 21:07] VITALS: BP 145/63; PULSE 67; RESP 16
== END 2019-11-02 21:05 | disposition home or self-care (01) ==
LOC: EC 18:18
DX: E11.65 Type 2 diabetes mellitus with hyperglycemia (principal); D72.829 Elevated white blood cell count, unspecified; R79.89 Other specified abnormal findings of blood chemistry; R82.81 Pyuria; R82.998 Other abnormal findings in urine; E78.5 Hyperlipidemia, unspecified; I10 Essential (primary) hypertension; E07.9 Disorder of thyroid, unspecified; Z87.891 Personal history of nicotine dependence; Z88.0 Allergy status to penicillin; Z79.84 Long term (current) use of oral hypoglycemic drugs; Z79.890 Hormone replacement therapy; Z79.899 Other long term (current) drug therapy; Z83.3 Family history of diabetes mellitus
CPT/HCPCS: 36415; 80053; 81001; 82009; 85025; 96360; 96361; 99285

== ENCOUNTER → 2019-11-03 | Outpatient (CLI) | payer OTHER ==
[2019-11-03 17:30] LABS: African American GFR (CKD) 114.6 (60.0-200.0); Anion Gap 6.7 mmol/L (4.00-12.00); BUN/Creat Ratio 14.29 Ratio (12.00-20.00); Calcium 8.8 mg/dL (8.7-10.3); Carbon Dioxide 27.3 mmol/L (21.6-31.8); Non-African American GFR(CKD) 98.9 (60.0-200.0); Potassium 4.4 mmol/L (3.5-5.5)
== END | disposition home or self-care (01) ==
LOC: LABWHC1 08:36
PROVIDERS: ATTEND Internal Medicine
DX: N39.0 Urinary tract infection, site not specified (principal); E11.9 Type 2 diabetes mellitus without complications; R32 Unspecified urinary incontinence
CPT/HCPCS: 36415; 80048; 83036

== ENCOUNTER → 2019-11-09 | Outpatient (CLI) | payer OTHER ==
[2019-11-09 09:01] LABS: Basophils # (A) 0.1 k/uL (0-0.2); Basophils % (A) 1 %; Eosinophils # (A) 0.2 k/uL (0-0.7); Eosinophils % (A) 2 %; HCT 45.4 % (34.0-46.0); HGB 14.3 gm/dL (11.4-16.0); Lymphocytes # (A) 3.2 k/uL (1.0-4.8); Lymphocytes % (A) 28 %; MCH 27.4 pg (25.0-35.0); MCHC 31.5 g/dL (31.0-37.0); Monocytes # (A) 0.5 k/uL (0-1.0); Monocytes % (A) 4 %; Neutrophils # (A) 7.4 k/uL (1.3-7.7); Neutrophils % (A) 64 %; Platelet Count 310 k/uL (150-450); RBC 5.22 m/uL (3.80-5.40); RDW 14.6 % (11.5-15.5); WBC 11.6 k/uL (3.8-10.6)
[2019-11-09 10:00] LABS: Erythrocyte Sedimentation Rate 11 mm/hr (0-20)
[2019-11-09 16:13] LABS: African American GFR (CKD) 97.6 (60.0-200.0); Albumin 4.3 g/dL (3.80-4.90); Albumin/Globulin Ratio 2.15 (1.60-3.17); Anion Gap 3.8 mmol/L (4.00-12.00); BUN/Creat Ratio 18.75 Ratio (12.00-20.00); Calcium 9.5 mg/dL (8.7-10.3); Carbon Dioxide 28.2 mmol/L (21.6-31.8); Chol/HDL Ratio 5.09; LDL Cholesterol,Calculated 88.4 mg/dL (0.0-131.0); Non-African American GFR(CKD) 84.2 (60.0-200.0); Potassium 4.3 mmol/L (3.5-5.5); Total Bilirubin 0.4 mg/dL (0.2-1.2); Total Protein 6.3 g/dL (6.2-8.2); VLDL Calculation 46.6 mg/dL (5.00-40.00)
== END | disposition home or self-care (01) ==
LOC: LABWHC1 08:32
PROVIDERS: ATTEND Internal Medicine
DX: I10 Essential (primary) hypertension (principal); E78.5 Hyperlipidemia, unspecified; E11.65 Type 2 diabetes mellitus with hyperglycemia; E03.9 Hypothyroidism, unspecified; E55.9 Vitamin D deficiency, unspecified; D64.9 Anemia, unspecified
CPT/HCPCS: 36415; 80053; 80061; 82306; 82550; 84439; 84443; 85025; 85652; 86376; 86800

== ENCOUNTER → 2019-11-17 | Outpatient (CLI) | payer OTHER ==
[2019-11-17 11:38] LABS: Basophils # (A) 0.1 k/uL (0-0.2); Basophils % (A) 1 %; Eosinophils # (A) 0.1 k/uL (0-0.7); Eosinophils % (A) 2 %; HCT 47.8 % (34.0-46.0); HGB 14.6 gm/dL (11.4-16.0); Hypochromasia Slight; Lymphocytes # (A) 1.9 k/uL (1.0-4.8); Lymphocytes % (A) 37 %; MCH 26.8 pg (25.0-35.0); MCHC 30.6 g/dL (31.0-37.0); MCV 87.6 fL (80.0-100.0); Mean Platelet Volume 7.8; Monocytes # (A) 0.2 k/uL (0-1.0); Monocytes % (A) 4 %; Neutrophils # (A) 2.7 k/uL (1.3-7.7); Neutrophils % (A) 53 %; Platelet Count 258 k/uL (150-450); RBC 5.45 m/uL (3.80-5.40)
== END | disposition home or self-care (01) ==
LOC: LABWHC1 10:55
PROVIDERS: ATTEND Nurse Practitioner
DX: J45.909 Unspecified asthma, uncomplicated (principal); J44.9 Chronic obstructive pulmonary disease, unspecified; E66.01 Morbid (severe) obesity due to excess calories; G47.19 Other hypersomnia; R06.2 Wheezing; R05 Cough
CPT/HCPCS: 36415; 82103; 82104; 82785; 85025; 86001; 86003; 86606; 86609

== ENCOUNTER 2020-03-12 19:52 | Emergency (ER) | payer OTHER ==
[2020-03-12 20:41] LABS: Glucose,Whole Blood 381 mg/dL (75-99)
[2020-03-12] MEDS ORDERED: SODIUM CHLORIDE 0.9% 1,000 ML IV STA ×2 (21:18)
[2020-03-12 22:04] LABS: Basophils % (A) 0 %; Eosinophils # (A) 0.1 k/uL (0-0.7); Eosinophils % (A) 1 %; HCT 43.5 % (34.0-46.0); HGB 13.9 gm/dL (11.4-16.0); Lymphocytes # (A) 2.7 k/uL (1.0-4.8); Lymphocytes % (A) 21 %; MCH 27.6 pg (25.0-35.0); MCHC 31.9 g/dL (31.0-37.0); MCV 86.5 fL (80.0-100.0); Mean Platelet Volume 8.2; Monocytes # (A) 0.6 k/uL (0-1.0); Monocytes % (A) 5 %; Neutrophils # (A) 9.4 k/uL (1.3-7.7); Neutrophils % (A) 72 %; Platelet Count 350 k/uL (150-450); RBC 5.03 m/uL (3.80-5.40); RDW 14.6 % (11.5-15.5)
[2020-03-12 22:15] LABS: ALT 33 U/L (4-34); AST 22 U/L (14-36); African American GFR (CKD) >90 (>60 ml/min/1.73 sqM); Albumin 4.2 g/dL (3.5-5.0); Alkaline Phosphatase 128 U/L (38-126); Amylase 45 U/L (30-110); Anion Gap 13 mmol/L; Blood Urea Nitrogen 18 mg/dL (7-17); Calcium 9.8 mg/dL (8.4-10.2); Carbon Dioxide 24 mmol/L (22-30); Chloride 99 mmol/L (98-107); Glucose 353 mg/dL (74-99); Non-African American GFR(CKD) >90 (>60 ml/min/1.73 sqM); Potassium 4.4 mmol/L (3.5-5.1); Sodium 136 mmol/L (137-145); Total Bilirubin 0.2 mg/dL (0.2-1.3); Total Protein 7.2 g/dL (6.3-8.2)
[2020-03-12 22:22] LABS: Appearance,Urine Clear (Clear); Bilirubin,Urine Negative (Negative); Blood,Urine Negative (Negative); Color,Urine Light Yellow; Glucose,Urine (UA) 4+ (Negative); Ketones,Urine Trace (Negative); Leukocyte Esterase,Urine Trace (Negative); Mucus,Urine Rare /hpf; Nitrite,Urine Negative (Negative); PH, Urine 5.5 (5.0-8.0); Protein,Urine Negative (Negative); RBC,Urine 1 /hpf (0-5); Specific Gravity,Urine 1.034 (1.001-1.035); Squamous Epithelial Cell,Urine 1 /hpf (0-4); Urobilinogen,Urine <2.0 mg/dL (<2.0); WBC,Urine 1 /hpf (0-5)
--- NOTE | 2020-03-12 22:30 | XR ---
EXAMINATION TYPE: XR chest 2V DATE OF EXAM: 03/12/2020 COMPARISON: 03/19/2017 HISTORY: Chest pain TECHNIQUE: FINDINGS: There is a somewhat linear 5.5 x 2.5 cm infiltrate in the superior segment right lower lobe . The other lung cote are clear. Heart is normal. There are is no mediastinal adenopathy. Bony thor ax is intact. There is no pleural effusion. IMPRESSION: There is new consolidation in the superior segment right lower lobe compared to old exam. Follow-up is recommended show clearing.
[2020-03-12 22:59] LABS: Glucose,Whole Blood 313 mg/dL (75-99)
[2020-03-12] MEDS ORDERED: INSULIN ASPART (NovoLOG) 100 UNIT/ML VIAL SQ STA (23:27)
[2020-03-12] MEDS ORDERED: INSULIN REGULAR 100 UNIT/ML VIAL IV STA (23:43)
[2020-03-13 00:22] LABS: Glucose,Whole Blood 246 mg/dL (75-99)
[2020-03-13 00:47] LABS: Glucose,Whole Blood 187 mg/dL (75-99)
[2020-03-13 00:59] VITALS: RESP 18
--- NOTE | 2020-03-13 01:04 | ED ---
General Adult HPI - General Chief complaint: Recheck/Abnormal Lab/Rx Stated complaint: High Sugar Time Seen by Provider: 03/12/20 20:43 Source: patient, RN notes reviewed Mode of arrival: ambulatory Limitations: no limitations - History of Present Illness Initial comments: 54-year-old female presents to the emergency department for a chief complaint of elevated blood sugar. Patient states she started on steroids yesterday for a cough. Patient states her blood sugar has been running in the 300s to 400s. Patient states the highest it has been is 4:15. States this started after she started taking the steroids. Patient is a vam-urnqyfm-yhqslxyhr diabetic taking metformin.Patient has no other complaints at this time including shortness of breath, chest pain, abdominal pain, nausea or vomiting, headache, or visual changes. - Related Data Home Medications Medication Instructions Recorded Confirmed Atorvastatin [Lipitor] 10 mg PO HS 03/19/17 11/24/18 Cholecalciferol [Vitamin D3] 5,000 unit PO DAILY 03/19/17 11/24/18 Levothyroxine Sodium [Synthroid] 150 mcg PO QAM 03/19/17 11/24/18 Lisinopril [Prinivil] 20 mg PO QAM 03/19/17 11/24/18 Multivitamins, Thera [Multivitamin 1 tab PO DAILY 03/19/17 11/24/18 (formulary)] Vitamin E (Dl,Tocopheryl Acet) 400 unit PO DAILY 03/19/17 11/24/18 [Vitamin E] metFORMIN HCL [Glucophage] 500 mg PO TID 03/19/17 11/24/18 Allergies Allergy/AdvReac Type Severity Reaction Status Date / Time amoxicillin Allergy Rash/Hives Verified 03/12/20 20:34 Review of Systems ROS Statement: Those systems with pertinent positive or pertinent negative responses have been documented in the HPI. ROS Other: All systems not noted in ROS Statement are negative. Past Medical History Past Medical History: Asthma, Chest Pain / Angina, COPD, Diabetes Mellitus, Hyperlipidemia, Hypertension, Osteoarthritis (OA), Thyroid Disorder Additional Past Medical History / Comment(s): "TOLD 3-4 YEARS AGO I HAD A PARTIAL COLLAPSED LUNG LT SIDE_NO CHEST TUBE", BRONCHITIS,steroids October 2018 History of Any Multi-Drug Resistant Organisms: None Reported Past Surgical History: Appendectomy, Hysterectomy, Tubal Ligation Past Anesthesia/Blood Transfusion Reactions: Motion Sickness Additional Past Anesthesia/Blood Transfusion Reaction / Comment(s): no hx blood transfusion Past Psychological History: No Psychological Hx Reported Smoking Status: Former smoker Past Alcohol Use History: None Reported Past Drug Use History: None Reported - Past Family History Mother Family Medical History: Cancer, Coronary Artery Disease (CAD), Diabetes Mellitus, Deep Vein Thrombosis (DVT), GERD/Reflux, Hypertension, Myocardial Infarction ([place]), Thyroid Disorder Additional Family Medical History / Comment(s): UTERINE CANCER, CARDIAC STENTS Father Family Medical History: No Reported History Additional Family Medical History / Comment(s): SMOKES BUT PT STATED HE IS HEALTHY AT AGE 72 General Exam Limitations: no limitations General appearance: alert, in no apparent distress Head exam: Present: atraumatic, normocephalic, normal inspection Eye exam: Present: normal appearance, PERRL, EOMI. Absent: scleral icterus, conjunctival injection, periorbital swelling ENT exam: Present: normal exam, mucous membranes moist Neck exam: Present: normal inspection, full ROM. Absent: tenderness, meningismus Respiratory exam: Present: normal lung sounds bilaterally. Absent: respiratory distress, wheezes, rales, rhonchi, stridor Cardiovascular Exam: Present: regular rate, normal rhythm, normal heart sounds. Absent: systolic murmur, diastolic murmur, rubs, gallop, clicks GI/Abdominal exam: Present: soft, normal bowel sounds. Absent: distended, tende rness, guarding, rebound, rigid Neurological exam: Present: alert Course Vital Signs 03/12/20 03/12/20 03/12/20 20:29 20:40 20:48 Temperature 98 F Pulse Rate 78 Respiratory 20 24 Rate Blood Pressure 157/98 O2 Sat by Pulse 97 95 Oximetry 03/12/20 03/12/20 03/12/20 21:00 22:19 23:00 Temperature Pulse Rate Respiratory Rate Blood Pressure O2 Sat by Pulse 95 95 95 Oximetry 03/13/20 00:00 Temperature Pulse Rate Respiratory 18 Rate Blood Pressure 170/86 O2 Sat by Pulse 96 Oximetry Medical Decision Making - Medical Decision Making Vitals are stable. Patient is 97% on room air. Heart rate is normal. She is afebrile. CBC shows leukocytosis of 13. CMP demonstrates hyperglycemia of 353. Urinalysis shows trace ketones with a negative acetone. Ketones likely evident on the basis of dehydration. Patient was given 2 L of fluids which did improve her blood sugar to 313. She was then given 4 units of regular insulin, blood sugar at 187. Chest x-ray shows a new consolidation in the superior segment right lower lobe compared to old exam. Patient started Levaquin yesterday. Discussed with patient to continue Levaquin and to follow-up with her doctor to ensure that chest x-ray improves. Patient states history to her prescribed by urgent care. Therefore I recommend she talked with her own primary care doctor about this tomorrow to see if she should continue the use. Otherwise she should return to the emergency room for any worsening symptoms. Blood culture and coronavirus pending. - Lab Data Result diagrams: 03/12/20 21:49 03/12/20 21:49 Lab Results 03/12/20 03/12/20 03/12/20 Range/Units 20:40 21:49 21:49 WBC 13.0 H (3.8-10.6) k/uL RBC 5.03 (3.80-5.40) m/uL Hgb 13.9 (11.4-16.0) gm/dL Hct 43.5 (34.0-46.0) % MCV 86.5 (80.0-100.0) fL MCH 27.6 (25.0-35.0) pg MCHC 31.9 (31.0-37.0) g/dL RDW 14.6 (11.5-15.5) % Plt Count 350 (150-450) k/uL Neutrophils % 72 % Lymphocytes % 21 % Monocytes % 5 % Eosinophils % 1 % Basophils % 0 % Neutrophils # 9.4 H (1.3-7.7) k/uL Lymphocytes # 2.7 (1.0-4.8) k/uL Monocytes # 0.6 (0-1.0) k/uL Eosinophils # 0.1 (0-0.7) k/uL Basophils # 0.0 (0-0.2) k/uL Sodium 136 L (137-145) mmol/L Potassium 4.4 (3.5-5.1) mmol/L Chloride 99 (98-107) mmol/L Carbon Dioxide 24 (22-30) mmol/L Anion Gap 13 mmol/L BUN 18 H (7-17) mg/dL Creatinine 0.75 (0.52-1.04) mg/dL Est GFR (CKD-EPI)AfAm >90 (>60 ml/min/1.73 sqM) Est GFR (CKD-EPI)NonAf >90 (>60 ml/min/1.73 sqM) Glucose 353 H (74-99) mg/dL POC Glucose (mg/dL) 381 H (75-99) mg/dL POC Glu Hose [facility]ementer ID Arnulfoterly, Jessie Calcium 9.8 (8.4-10.2) mg/dL Total Bilirubin 0.2 (0.2-1.3) mg/dL AST 22 (14-36) U/L ALT 33 (4-34) U/L Alkaline Phosphatase 128 H (38-126) U/L Total Protein 7.2 (6.3-8.2) g/dL Albumin 4.2 (3.5-5.0) g/dL Amylase 45 (30-110) U/L Lipase 195 (23-300) U/L Urine Color Urine Appearance (Clear) Urine pH (5.0-8.0) Ur Specific [place] (1.001-1.035) Urine Protein (Negative) Urine Glucose (UA) (Negative) Urine Ketones (Negative) Urine Blood (Negative) Urine Nitrite (Negative) Urine Bilirubin (Negative) Urine Urobilinogen (<2.0) mg/dL Ur Leukocyte Esterase (Negative) Urine RBC (0-5) /hpf Urine WBC (0-5) /hpf Ur Squamous Epith Cells (0-4) /hpf Urine Mucus (None) /hpf Acetone, Qual Negative (Negative) 03/12/20 03/12/20 03/13/20 Range/Units 21:53 22:56 00:17 WBC (3.8-10.6) k/uL RBC (3.80-5.40) m/uL Hgb (11.4-16.0) gm/dL Hct (34.0-46.0) % MCV (80.0-100.0) fL MCH (25.0-35.0) pg MCHC (31.0-37.0) g/dL RDW (11.5-15.5) % Plt Count (150-450) k/uL Neutrophils % % Lymphocytes % % Monocytes % % Eosinophils % % Basophils % % Neutrophils # (1.3-7.7) k/uL Lymphocytes # (1.0-4.8) k/uL Monocytes # (0-1.0) k/uL Eosinophils # (0-0.7) k/uL Basophils # (0-0.2) k/uL Sodium (137-145) mmol/L Potassium (3.5-5.1) mmol/L Chloride (98-107) mmol/L Carbon Dioxide (22-30) mmol/L Anion Gap mmol/L BUN (7-17) mg/dL Creatinine (0.52-1.04) mg/dL Est GFR (CKD-EPI)AfAm (>60 ml/min/1.73 sqM) Est GFR (CKD-EPI)NonAf (>60 ml/min/1.73 sqM) Glucose (74-99) mg/dL POC Glucose (mg/dL) 313 H 246 H (75-99) mg/dL POC Glu Hose Cementer Eli Jordan Samantha Calcium (8.4-10.2) mg/dL Total Bilirubin (0.2-1.3) mg/dL AST (14-36) U/L ALT (4-34) U/L Alkaline Phosphatase (38-126) U/L Total Protein (6.3-8.2) g/dL Albumin (3.5-5.0) g/dL Amylase (30-110) U/L Lipase (23-300) U/L Urine Color Light Yellow Urine Appearance Clear (Clear) Urine pH 5.5 (5.0-8.0) Ur Specific [place] 1.034 (1.001-1.035) Urine Protein Negative (Negative) Urine Glucose (UA) 4+ H (Negative) Urine Ketones Trace H (Negative) Urine Blood Negative (Negative) Urine Nitrite Negative (Negative) Urine Bilirubin Negative (Negative) Urine Urobilinogen <2.0 (<2.0) mg/dL Ur Leukocyte Esterase Trace H (Negative) Urine RBC 1 (0-5) /hpf Urine WBC 1 (0-5) /hpf Ur Squamous Epith Cells 1 (0-4) /hpf Urine Mucus Rare H (None) /hpf Acetone, Qual (Negative) 03/13/20 Range/Units 00:45 WBC (3.8-10.6) k/uL RBC (3.80-5.40) m/uL Hgb (11.4-16.0) gm/dL Hct (34.0-46.0) % MCV (80.0-100.0) fL MCH (25.0-35.0) pg MCHC (31.0-37.0) g/dL RDW (11.5-15.5) % Plt Count (150-450) k/uL Neutrophils % % Lymphocytes % % Monocytes % % Eosinophils % % Basophils % % Neutrophils # (1.3-7.7) k/uL Lymphocytes # (1.0-4.8) k/uL Monocytes # (0-1.0) k/uL Eosinophils # (0-0.7) k/uL Basophils # (0-0.2) k/uL Sodium (137-145) mmol/L Potassium (3.5-5.1) mmol/L Chloride (98-107) mmol/L Carbon Dioxide (22-30) mmol/L Anion Gap mmol/L BUN (7-17) mg/dL Creatinine (0.52-1.04) mg/dL Est GFR (CKD-EPI)AfAm (>60 ml/min/1.73 sqM) Est GFR (CKD-EPI)NonAf (>60 ml/min/1.73 sqM) Glucose (74-99) mg/dL POC Glucose (mg/dL) 187 H (75-99) mg/dL POC Glu Hose [place]er PK Janki Mendez Calcium (8.4-10.2) mg/dL Total Bilirubin (0.2-1.3) mg/dL AST (14-36) U/L ALT (4-34) U/L Alkaline Phosphatase (38-126) U/L Total Protein (6.3-8.2) g/dL Albumin (3.5-5.0) g/dL Amylase (30-110) U/L Lipase (23-300) U/L Urine Color Urine Appearance (Clear) Urine pH (5.0-8.0) Ur Specific [place] (1.001-1.035) Urine Protein (Negative) Urine Glucose (UA) (Negative) Urine Ketones (Negative) Urine Blood (Negative) Urine Nitrite (Negative) Urine Bilirubin (Negative) Urine Urobilinogen (<2.0) mg/dL Ur Leukocyte Esterase (Negative) Urine RBC (0-5) /hpf Urine WBC (0-5) /hpf Ur Squamous Epith Cells (0-4) /hpf Urine Mucus (None) /hpf Acetone, Qual (Negative) Disposition Clinical Impression: Pneumonia, Hyperglycemia Disposition: HOME SELF-CARE Condition: Good Instructions (If sedation given, give patient instructions): Pneumonia (ED), Diabetic Hyperglycemia (ED) Additional Instructions: Please drink plenty of fluids. Please follow-up with primary care in 1-2 days. Return to the emergency room for any worsening symptoms. Is patient prescribed a controlled substance at d/c from ED?: No Referrals: Oliverio Stout MD [Primary Care Provider] - 1-2 days Time of Disposition: 01:04
[2020-03-13 01:26] VITALS: BP 159/95; PULSE 77; TEMP 97.6
== END 2020-03-13 01:20 | disposition home or self-care (01) ==
LOC: EC 19:52
DX: E11.65 Type 2 diabetes mellitus with hyperglycemia (principal); J18.1 Lobar pneumonia, unspecified organism; D72.829 Elevated white blood cell count, unspecified; E78.5 Hyperlipidemia, unspecified; E07.9 Disorder of thyroid, unspecified; I10 Essential (primary) hypertension; Z79.84 Long term (current) use of oral hypoglycemic drugs; Z79.890 Hormone replacement therapy; Z79.899 Other long term (current) drug therapy; Z88.0 Allergy status to penicillin; Z87.891 Personal history of nicotine dependence
CPT/HCPCS: 36415; 71046; 80053; 81001; 82009; 82150; 83690; 85025; 87040; 87635; 96361; 96374; 99283

== ENCOUNTER → 2020-03-23 | Outpatient (CLI) | payer OTHER ==
--- NOTE | 2020-03-23 10:22 | XR ---
EXAMINATION TYPE: XR chest 2V DATE OF EXAM: 03/23/2020 COMPARISON: Chest x-ray March 12, 2020. HISTORY: Pneumonia, prior abnormal x-ray. TECHNIQUE: Frontal and lateral views of the chest are obtained. FINDINGS: There is no new suspicious focal air space opacity, pleural effusion, or pneumothorax seen . Interval improvement but incomplete resolution of the superior right lower lobe masslike consolidat ion seen best on lateral view on today's study. The cardiac silhouette size remains within normal dumont its. The osseous structures are intact. IMPRESSION: Findings favor resolving acute infiltrate. Follow up to complete resolution advised.
[2020-03-23 11:24] LABS: Basophils # (A) 0.1 k/uL (0-0.2); Basophils % (A) 1 %; Eosinophils # (A) 0.2 k/uL (0-0.7); Eosinophils % (A) 2 %; HCT 44.5 % (34.0-46.0); HGB 14.6 gm/dL (11.4-16.0); Lymphocytes # (A) 3.5 k/uL (1.0-4.8); Lymphocytes % (A) 30 %; MCH 28.6 pg (25.0-35.0); MCHC 32.9 g/dL (31.0-37.0); MCV 86.9 fL (80.0-100.0); Mean Platelet Volume 7.6; Monocytes # (A) 0.4 k/uL (0-1.0); Monocytes % (A) 3 %; Neutrophils # (A) 7.2 k/uL (1.3-7.7); Neutrophils % (A) 63 %; Platelet Count 282 k/uL (150-450); RBC 5.12 m/uL (3.80-5.40); RDW 14.3 % (11.5-15.5); WBC 11.5 k/uL (3.8-10.6)
== END | disposition home or self-care (01) ==
LOC: LABWHC1 09:53
PROVIDERS: ATTEND Internal Medicine
DX: J12.9 Viral pneumonia, unspecified (principal)
CPT/HCPCS: 36415; 71046; 85025

== ENCOUNTER → 2020-03-29 | Outpatient (CLI) | payer OTHER ==
[2020-03-29 13:46] LABS: African American GFR (CKD) >90 (>60 ml/min/1.73 sqM); Blood Urea Nitrogen 15 mg/dL (7-17); Non-African American GFR(CKD) >90 (>60 ml/min/1.73 sqM)
--- NOTE | 2020-03-29 14:48 | CT ---
EXAMINATION TYPE: CT chest w con DATE OF EXAM: 03/29/2020 COMPARISON: Chest x-ray 03/23/2020 HISTORY: pneumonia, abnormal chest xray CT DLP: 704 mGycm Automated exposure control for dose reduction was used. CONTRAST: CT scan of the chest is performed with IV Contrast, patient injected with 100 mL of Isovue 300. FINDINGS: LUNGS: There is a tree-in-bud pattern in the right upper lobe with an area of the distal consolidatio n. No pleural effusion or pneumothorax. Subsegmental changes are seen. Most typical of atelectasis. MEDIASTINUM: There are no greater than 1 cm hilar or mediastinal lymph nodes. No pericardial effusi on is seen. OTHER: There is diffuse low-attenuation throughout the liver compatible with fatty infiltration. Kendal er appears prominent in size compatible with hepatomegaly measuring 23 cm. Accessory spleen noted and there is a small hiatal hernia. IMPRESSION: 1. Tree-in-bud pattern within the right upper lobe with an area of consolidation correlate for pneumo kaleb. Atypical or opportunistic infection including mycobacterium in the differential diagnosis correl ate clinically. Neoplastic process not entirely excluded but felt much less likely. Follow-up to reso lution recommended. 2. Correlate for hepatomegaly and hepatic steatosis.
== END | disposition home or self-care (01) ==
LOC: RADCTMAIN 13:08
PROVIDERS: ATTEND Internal Medicine
DX: R91.8 Other nonspecific abnormal finding of lung field (principal); Z88.0 Allergy status to penicillin; Z88.8 Allergy status to other drugs, medicaments and biological substances
CPT/HCPCS: 82565; 84520; 71260; 36415; Q9967

== ENCOUNTER → 2020-04-23 | Outpatient (CLI) | payer OTHER ==
--- NOTE | 2020-04-23 15:17 | CT ---
EXAMINATION TYPE: CT chest wo con DATE OF EXAM: 04/23/2020 COMPARISON: CT chest 03/29/2020 HISTORY: Pneumonia, asthma. CT DLP: 479.3 mGycm. Automated Exposure Control for Dose Reduction was Utilized. TECHNIQUE: CT scan of the thorax is performed without IV contrast. FINDINGS: LUNGS: The lungs are grossly clear, there is no concerning parenchymal mass or nodule identified. T here is no pleural effusion or pneumothorax seen. The tracheobronchial tree is patent. MEDIASTINUM: Lack of IV contrast is noted to limit evaluation for mediastinal and especially hilar ad enopathy. There are no definitive greater than 1 cm hilar or mediastinal lymph nodes. No cardiomega ly or pericardial effusion is seen. OTHER: No additional significant abnormality is seen. IMPRESSION: Improved aeration as compared to prior exam. No other significant interval change.
== END | disposition home or self-care (01) ==
LOC: RADCTMAIN 13:44
PROVIDERS: ATTEND Internal Medicine Pulmonary Disease
DX: J18.9 Pneumonia, unspecified organism (principal); E66.01 Morbid (severe) obesity due to excess calories; J45.909 Unspecified asthma, uncomplicated
CPT/HCPCS: 71250